=== PATIENT | female | born 1995 | race Caucasian/White ===

== ENCOUNTER 2018-02-24 20:26 | Emergency (ER) | payer SELFPAY ==
[2018-02-24 20:34] VITALS: BP 165/80; PULSE 96; RESP 18; TEMP 97.9; O2SAT 100
== END 2018-02-24 21:57 | disposition left against medical advice (07) ==
LOC: NED 20:26
DX: Z53.21 Procedure and treatment not carried out due to patient leaving prior to being seen by health care provider (principal)
CPT/HCPCS: 99281